=== PATIENT | male | born 1995 ===

== ENCOUNTER 2020-01-22 17:16 | Outpatient (REF) | payer MEDICAID, SELFPAY ==
[2020-01-22 19:26] LABS: CREATININE 1.18 mg/dL (0.70-1.30); Calculated LDL 110 mg/dL (<100); Cholesterol 198 mg/dL (<200); HDL Cholesterol 80 mg/dL (40-60); Triglyceride 41 mg/dL (<150)
[2020-01-24 09:13] LABS: Hepatitis B Surface Ag Negative (Negative)
[2020-01-24 10:08] LABS: HIV-1/2 Ag & Ab Screen Negative (Negative)
[2020-01-26 10:11] LABS: Syphilis Serology (RPR) Positive (Negative)
[2020-02-06 16:32] LABS: Syphilis Total Ab w/Reflex Reactive (Nonreactive)
[2020-02-06 16:34] LABS: RPR Screen w/Reflex Nonreactive (Nonreactive)
[2020-02-06 16:37] LABS: Syphilis Ab, TP-PA Positive (Negative)
== END 2020-01-22 17:36 ==
LOC: NCHCN 17:16
PROVIDERS: PCP Family Medicine; Visit Provider Family Medicine
DX: F31.9 Bipolar disorder, unspecified (principal); Z20.9 Contact with and (suspected) exposure to unspecified communicable disease; Z11.59 Encounter for screening for other viral diseases; Z11.4 Encounter for screening for human immunodeficiency virus [HIV]
CPT/HCPCS: 0064U; 80061; 86780; 87340; 87389; 82565; 86592